=== PATIENT | male | born 1965 | race Two or more races ===

== ENCOUNTER → 2024-01-20 16:15 | Outpatient (REF) | payer OTHER, SELFPAY | LOC: RCS 16:15 | DX: I35.8 Other nonrheumatic aortic valve disorders (principal) | CPT/HCPCS: 93306 ==

== ENCOUNTER 2024-05-23 22:54 | Emergency (ER) | payer OTHER, SELFPAY ==
[2024-05-23 22:56] VITALS: BP 134/77
--- NOTE | 2024-05-23 23:41 | ED.GENMED ---
History of Present Illness
General
Chief Complaint: Oral/Mouth Problem
Source: patient and spouse
Exam Limitations: none
Time Seen by Provider: 05/23/24 23:30
Nursing documentation reviewed up to this point in time: agreed with
History of Present Illness
History of Present Illness:
This is a 59-year-old gentleman who has history of obstructive sleep apnea, history of dental/gingival issues for which he follows regularly with dentist.
Tonight while brushing his teeth he noticed a small 'blood blister' buccal mucosa on the right side. He denies pain nor specific injury but does admit to eating a fair amount of nuts tonight which is unusual for him.
He denies dental pain, no sore throat, no facial pain.
He denies dizziness or lightheadedness.
He takes no anticoagulants, no history of bleeding disorder.
No history of similar episodes in the past.
Past History
Past History
ED Past Medical History: Hypercholesterolemia and Other (Obstructive sleep apnea)
Social History
Tobacco: Non-smoker
Alcohol: None
Personal:
Living: with family
Employment: Employed
Family History
Family History: Other (Noncontributory)
Phy Exam
Physical Exam
Physical Exam:
PHYSICAL EXAMINATION:
General: no apparent distress, not acutely ill. 59-year-old gentleman appears his stated age, bright and alert, pleasant, easily communicative and in no acute distress. is accompanying.
HEENT: Normocephalic, atraumatic. No palpable tenderness. Mid aspect of the right buccal mucosa has a small intact hemorrhagic vesicle approximately 4 mm in diameter. Nontender. No surrounding ecchymosis. No gingival ecchymosis nor erythema
nor tenderness. No palpable dental tenderness. Posterior pharynx is clear. Tongue is midline without edema nor ecchymosis, no sublingual edema nor ecchymosis.
LUNGS: No respiratory distress. Respirations are easy nonlabored.
Neuro: alert and oriented. no focal neurological deficits
SKIN: Warm and dry, normal color. Good turgor. No petechiae nor ecchymosis.
Psychiatric: well kept. interactive and cooperative
Musculoskeletal: [No clubbing or cyanosis nor edema. No palpable tenderness.]
Course
Vital Signs
Initial and Last Documented VS:
Initial Vital Signs
Temp Pulse Resp BP Pulse Ox
97.6 F 78 16 134/77 99
05/23/24 22:56 05/23/24 22:56 05/23/24 22:56 05/23/24 22:56 05/23/24 22:56
Last Documented Vital Signs
Temp Pulse Resp BP Pulse Ox
97.6 F 78 16 134/77 99
05/23/24 22:56 05/23/24 22:56 05/23/24 22:56 05/23/24 22:56 05/23/24 22:56
MDM/Problems Addressed
Differential Diagnosis Includes:
Patient presents with focal hemorrhagic vesicle right buccal mucosa that appears mild focal trauma related such as with biting the inside of his cheek.
There is no surrounding ecchymosis, no gingival injury no gingival bleeding no history of such.
He does admit to eating nuts tonight which could certainly the cause for focal trauma.
Exam is otherwise benign, no evidence of petechiae nor skin ecchymosis.
No history of bleeding disorder and takes no anticoagulants.
No indication for laboratory studies.
Recommend supportive measures, limiting diet to soft foods over the next several days.
Will prescribe triamcinolone dental paste to use at bedtime to assist with healing. Follow-up with dentist for recheck.
*Pulse Oximetry
Patient hypoxic: no
*Critical Care Note
Total Time (30-74mins, 75-104mins- exclusive of procedures): Not Applicable
ED Attending Note
-
Portions of this chart may have been created with voice recognition software.� Occasional wrong word or��sound alike� substitutions may have occurred due to the inherent limitations of voice recognition software.
Discharge Plan
Departure
Patient Disposition: Home (Routine Discharge)
Date of Disposition: 05/23/24
Time of Disposition: 23:47
Patient with high blood pressure during this ER visit?: No
Condition: Good
Discharge Problem:
Ecchymosis of buccal mucosa, hemorrhagic vesicle buccal mucosa
Instructions: Soft diet
Prescriptions:
New
triamcinolone acetonide 0.1 % paste
1 applic dental HS Qty: 5 1RF
Activity Restrictions/Additional Instructions:
Limit your diet to soft foods over the next several days.
You had been prescribed triamcinolone dental paste to apply thin film to that blood blister at nighttime prior to going to bed.
Follow-up with your dentist for recheck.
Interventions
Interventions:
*Risk Screen - Suicide Last Done: 05/23/24 22:56
*Neglect/Abuse Screening Last Done: 05/23/24 23:21
*ED- Fall Risk Assessment Last Done: 05/23/24 23:21
*ED COVID-19 Vaccine History Last Done: 05/23/24 23:21
Discharge Date and Time
Print Language: [place]
== END 2024-05-24 00:07 | disposition home or self-care (01) ==
LOC: EMR 22:54
PROVIDERS: EMERGENCY PHYSICIAN Emergency Medicine; FAMILY PHYSICIAN Student in an Organized Health Care Education/Training Program
DX: S00.532A Contusion of oral cavity, initial encounter (principal); K06.8 Other specified disorders of gingiva and edentulous alveolar ridge; X58.XXXA Exposure to other specified factors, initial encounter; E78.00 Pure hypercholesterolemia, unspecified; G47.33 Obstructive sleep apnea (adult) (pediatric)
CPT/HCPCS: 99282

== ENCOUNTER → 2024-10-30 07:36 | Outpatient (REF) | payer OTHER, SELFPAY | LOC: HWRAD 07:36 | PROVIDERS: ATTENDING PHYSICIAN Internal Medicine Medical Oncology; FAMILY PHYSICIAN Student in an Organized Health Care Education/Training Program | DX: N18.31 Chronic kidney disease, stage 3a (principal) | CPT/HCPCS: 76775 ==

== ENCOUNTER 2024-12-12 22:13 | Emergency (ER) | payer OTHER, SELFPAY ==
[2024-12-12 22:15] VITALS: BP 120/75
[2024-12-12 23:44] VITALS: BP 114/68
[2024-12-12 23:46] VITALS: BMI 31.5
[2024-12-13 01:21] LABS: Urine Character Clear (Clear)
[2024-12-13 01:50] VITALS: BP 114/68
--- NOTE | 2024-12-13 02:16 | ED.GENMED ---
History of Present Illness
General
Chief Complaint: Skin Problem
Source: patient
Exam Limitations: none
Time Seen by Provider: 12/13/24 00:56
Nursing documentation reviewed up to this point in time: agreed with
History of Present Illness
History of Present Illness:
The patient is a 59 y/o male pmh of sleep apnea presenting with a non-painful bump on the right inner thigh that has been present for several days. The patient has never had this before. The patient denies additional symptoms such as burning during
urination, penile pain, testicular pain, abdominal pain, vomiting, or fever, stating, 'Im feeling fine, besides the bump.' The bump has progressively gotten bigger, but there is no pain associated with it. The patient acknowledges occasional shaving
in the area and is concerned about the nature of the bump. He expresses a desire to understand what the bump is but states that it is not causing him discomfort.
Past History
Past History
ED Past Medical History: Hypercholesterolemia and Other (Obstructive sleep apnea)
Social History
Tobacco: Non-smoker
Alcohol: None
Personal:
Living: with family
Employment: Employed
Family History
Family History: Other (Noncontributory)
Review of Systems
Review of Systems
All Other Systems: ROS reviewed and negative except as documented in HPI and ROS
Phy Exam
General Physical Exam
General Presentation: well appearing and no apparent distress
Cardiovascular Exam
Cardiovascular Exam: regular rate/rhythm and no edema
Pulmonary Exam
Pulmonary Exam: no respiratory distress
Gastrointestinal Exam
Gastrointestinal Exam: normal bowel sounds, non tender, soft and non distended
Genitourinary Exam Male
Exam Male: normal testicular exam (right sided inguinal lymphadenopathy, no inguinal hernia)
Course
Orders/Labs/Results
Orders:
Orders
12/13/24 01:15
Urinalysis Reflex To Culture Urgent
Date Specimen was Collected: 12/13/24
Time Specimen was Collected: 01:13
Vital Signs
Initial and Last Documented VS:
Initial Vital Signs
Temp Pulse Resp BP Pulse Ox
98.3 F 81 20 120/75 97
12/12/24 22:15 12/12/24 22:15 12/12/24 22:15 12/12/24 22:15 12/12/24 22:15
Last Documented Vital Signs
Temp Pulse Resp BP Pulse Ox
98.3 F 65 14 114/68 97
12/12/24 22:15 12/13/24 01:50 12/13/24 01:50 12/13/24 01:50 12/13/24 02:16
MDM/Problems Addressed
Differential Diagnosis Includes:
ddx include reactive lymphadenopathy, lymphoma, folliculitis
MDM/Problems Addressed:
59 y/o male presents with right inguinal swelling.
On exam he has a mobile non-tender soft lymph node in the R inguial region.
Exam is consistent with inguinal lymphadenoapthy.
No associated cellulitis or urinary symptoms, no associated fevers, chills night sweats.
Reviewed case with ED attending.
No indication for imaging at this time.
Will cover with doxycycline for a developing lymphadenitis/folliculitis.
Warm compress
*Pulse Oximetry
SaO2: 97
Oxygen Mode of Delivery: Room air
Patient hypoxic: no
*Critical Care Note
Total Time (30-74mins, 75-104mins- exclusive of procedures): Not Applicable
ED Attending Note
-
Portions of this chart may have been created with voice recognition software.� Occasional wrong word or��sound alike� substitutions may have occurred due to the inherent limitations of voice recognition software.
Discharge Plan
Departure
Patient Disposition: Home (Routine Discharge)
Date of Disposition: 12/13/24
Time of Disposition: 01:42
Patient with high blood pressure during this ER visit?: Yes
Condition: Good
Discharge Problem:
Inguinal lymphadenopathy
Instructions: Swollen lymph nodes in adults, BLOOD PRESSURE
Prescriptions:
New
doxycycline hyclate 100 mg capsule
100 mg PO BID 5 Days Qty: 10 0RF
No Action
triamcinolone acetonide 0.1 % paste
1 applic dental HS Qty: 5 1RF
Referrals:
Quinten Davis MD, Resident [Family Provider, General]
Activity Restrictions/Additional Instructions:
As discussed, your lump likely represents inguinal lymphadenopathy. Please continue to monitor your symptoms. Doxycycline sent to pharmacy. Please take 1 tablet twice daily for 5 days. Please apply warm compresses to the area multiple times a
day.
Please follow-up with your primary care provider in 1 to 2 weeks.
PLEASE RETURN TO ER SHOULD YOU DEVELOP FEVERS OR CHILLS, REDNESS OR PURULENT DRAINAGE FROM THE LESION, BURNING WITH URINATION, ABDOMINAL PAIN, CHEST PAIN, SHORTNESS OF BREATH, OR ANY OTHER SIGNS OR SYMPTOMS WORRISOME TO YOU.
Interventions
Interventions:
*Risk Screen - Suicide Last Done: 12/12/24 22:15
*General Assessment Last Done: 12/12/24 22:15
*Neglect/Abuse Screening Last Done: 12/12/24 22:15
*ED- Fall Risk Assessment Last Done: 12/12/24 23:47
*ED COVID-19 Vaccine History Last Done: 12/12/24 23:47
*ED Influenza Vaccine History Last Done: 12/12/24 23:47
*Nursing Disposition Last Done: 12/13/24 01:50
ED-Skin Assessment Last Done: 12/12/24 23:48
Discharge Date and Time
Discharge Date/Time: 12/13/24 01:51
Print Language: CITIZEN [place]
== END 2024-12-13 01:51 | disposition home or self-care (01) ==
LOC: EMR 22:13
PROVIDERS: Physician Assistant; EMERGENCY PHYSICIAN Emergency Medicine; FAMILY PHYSICIAN Student in an Organized Health Care Education/Training Program
DX: R59.0 Localized enlarged lymph nodes (principal); R03.0 Elevated blood-pressure reading, without diagnosis of hypertension; E78.00 Pure hypercholesterolemia, unspecified; G47.33 Obstructive sleep apnea (adult) (pediatric)
CPT/HCPCS: 99283; 81003